=== PATIENT | female | born 1940 | race Caucasian/White ===

== ENCOUNTER 2022-01-06 21:23 | Emergency (ER) | payer MEDICARE, BC, OTHER, SELFPAY ==
[2022-01-06 21:39] VITALS: BP 147/80; PULSE 68; RESP 18; TEMP 36.9; O2SAT 95; BMI 26.3
--- NOTE | 2022-01-06 21:43 | CRLHL7_ITS ---
For Patients: As a result of the Century Cures Act, medical imaging exams and procedure reports are released immediately into your electronic medical record. You may view this report before your referring provider. If you have questions, please contact your health care provider. INDICATION: Postoperative leg pain and swelling TECHNIQUE: Ultrasound venous duplex lower left extremity. Compression venous exam was performed using morocho-scale, color Doppler, and spectral Doppler analysis. COMPARISON: None FINDINGS: Sonographic imaging demonstrates the left common femoral, deep femoral, superficial femoral, popliteal, posterior tibial and greater saphenous and the contralateral right common femoral veins to be fully compressible with normal color Doppler blood flow. There is a 3.5 x 1.0 x 1.1 cm anechoic area in the left popliteal fossa. IMPRESSION: No DVT in the left lower extremity. 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 Dictated by Debra Wolff MD @ 01/06/2022 10:48:39 PM (Electronically Signed)
--- NOTE | 2022-01-06 22:51 | ED.LOWEXIN ---
HPI - Extremity Injury (Lower) General Chief Complaint: Extremity Pain/Injury, Lower Stated Complaint: severe pain and swelling Time Seen by Provider: 01/06/22 21:43 History of Present Illness HPI Narrative: 81-year-old woman presenting to the emergency department with increased left knee swelling and pain. Hurts a great deal to flex or extend at the knee. She had a total knee 4 weeks ago at [facility]. Has been rehabbing without event. Seen over at [facility] emergency department/urgent care and directed here as needing an ultrasound that there at this time unable to do. Ortho had recommended she have this done. I did speak with the provider there. She has not had any fever. No specific trauma. No noted redness. No drainage. Dr. Aston Kelly at [facility] is Orthpedist. Related Data Home Medications Medication Instructions Recorded Confirmed Tylenol 01/06/22 albuterol sulfate 90 mcg/actuation inhalation 01/06/22 aerosol inhaler aspirin 81 mg chewable tablet BID 01/06/22 atorvastatin 80 mg tablet mg 01/06/22 citalopram 20 mg tablet mg 01/06/22 fluticasone furoate 200 inhalation 01/06/22 mcg-vilanterol 25 mcg/dose inhalation powder (Breo Ellipta) hydrochlorothiazide 12.5 mg tablet mg 01/06/22 levothyroxine 50 mcg tablet mcg 01/06/22 losartan 50 mg tablet mg 01/06/22 oxycodone 5 mg tablet mg 01/06/22 trazodone 100 mg tablet mg 01/06/22 Allergies Allergy/AdvReac Type Severity Reaction Status Date / Time lisinopril Allergy Hives Verified 01/06/22 21:47 Sulfa (Sulfonamide Allergy Rash Verified 01/06/22 21:47 Antibiotics) Review of Systems Status of ROS: Reports: 6 or more systems reviewed and unremarkable except as noted in History and below [facility] Social History Smoking Status: Former smoker How often do you have a drink containing alcohol: 2-4 times a month AUDIT-C Alcohol total score: 2 Non-prescribed substance use: denies use service: No Exam Narrative: Exam Narrative: Pleasant. Seated in a wheelchair. Accompanied by spouse and son I believe. Breathing easily. Clearly uncomfortable with flexing or extending the left leg. There is not actually any significant lower extremity edema in the left leg. Mild swelling of the knee. Well-healing surgical incision. Generally sore to palpation perhaps more posteriorly. No calor. No induration of the skin. Const: Vital Signs, click to edit/add: Vital Signs - 24 hr 01/06/22 21:39 Temperature 98.4 F Pulse Rate [Right Pulse Oximeter] 68 Respiratory Rate 18 Blood Pressure [Le ft Upper Arm] 147/80 H Pulse Oximetry 95 Oxygen Delivery Me thod Room Air Documenting provider has reviewed patient's vital signs: yes Course Course Hospital Course: As planned has already been ordered for an ultrasound. She would like something for pain. Dispensed to tablets of [place]. Later reports having 3 tablets remaining at home. Reevaluation(s) Reevaluation #1: Pain improved. I think in particular relief that no clot or infection. Vital Signs Vital signs: Initial Vital Signs Temperature 98.4 F 01/06/22 21:39 Temperature Source Temporal Artery Scan 01/06/22 21:39 Pulse Rate 68 01/06/22 21:39 Respiratory Rate 18 01/06/22 21:39 Blood Pressure 147/80 H 01/06/22 21:39 Blood Pressure Mean 102 01/06/22 21:39 Blood Pressure Position Sitting 01/06/22 21:39 Pulse Oximetry 95 01/06/22 21:39 Oxygen Delivery Method 01/06/22 21:39 Vital Signs Temperature 98.4 F 01/06/22 21:39 Pulse Rate 68 01/06/22 21:39 Respiratory Rate 18 01/06/22 21:39 Blood Pressure 147/80 H 01/06/22 21:39 Pulse Oximetry 95 01/06/22 21:39 Oxygen Delivery Method 01/06/22 21:39 Temperature 98.4 F 01/06/22 21:39 Pulse Rate 68 01/06/22 21:39 Respiratory Rate 18 01/06/22 21:39 Blood Pressure 147/80 H 01/06/22 21:39 Pulse Oximetry 95 01/06/22 21:39 Oxygen Delivery Method 01/06/22 21:39 MDM - Extremity Injury (Lower) MDM Narrative Medical decision making narrative: I think very unlikely that there is a blood clot in this case and does not appear to be infectious etiology. I would evaluate for seroma or Hernandez's cyst perhaps. I spoke to the performing blood bank technologist. And Radiology over-read as below. There is a 3.5 x 1.0 x 1.1 cm anechoic area in the left popliteal fossa. IMPRESSION: No DVT in the left lower extremity. 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 Dispensed knee immobilizer for comfort. Medical Records Attestation: I reviewed the patient's medical records. Discharge Plan Discharge Clinical Impression: Postoperative pain of knee, Hernandez's cyst Patient Disposition: Home w/ Parent or Adult Condition: Stable Additional Instructions: We have a radiology over-read already, please take this with you. Discuss further cares with your orthopedist. I do not think that they will want you to be in this knee immobilizer be for an extended period of time, but it can offer you temporary comfort. It is possible that this would rupture and cause sudden increase in pain and swelling; just be aware. If needed, [facility] from [facility]. Prescriptions: No Action aspirin 81 mg tablet,chewable BID albuterol sulfate 90 mcg/actuation HFA aerosol inhaler INHALATION losartan 50 mg tablet atorvastatin 80 mg tablet citalopram 20 mg tablet trazodone 100 mg tablet levothyroxine 50 mcg tablet oxycodone 5 mg tablet hydrochlorothiazide 12.5 mg tablet fluticasone furoate-vilanterol [Breo Ellipta] 200-25 mcg/dose blister with device INHALATION Tylenol Follow Up/Referrals: Provider,Not a Local [Primary Care Provider] - Stand Alone Forms: [employer] Info Instructions
[2022-01-06] MEDS: HYDROCODONE-ACETAMIN 5-325 MG 1 TAB 2 TAB PO (22:57)
== END 2022-01-06 23:09 | disposition home or self-care (01) ==
PROVIDERS: Emergency Provider Family Medicine
DX: M25.562 Pain in left knee (principal); G89.18 Other acute postprocedural pain; M71.22 Synovial cyst of popliteal space [Baker], left knee; Z79.82 Long term (current) use of aspirin; Z96.652 Presence of left artificial knee joint
CPT/HCPCS: 93971; 99283; 99284; A9270